=== PATIENT | female | born 1980 | race Caucasian/White ===

== ENCOUNTER 2022-06-09 20:01 | Emergency (ER) | payer MEDICAID, SELFPAY ==
[2022-06-09 20:04] VITALS: BP 121/82; PULSE 103; RESP 18; TEMP 36.4; O2SAT 100; BMI 22.6
--- NOTE | 2022-06-09 20:09 | ECG_ITS ---
Test Reason : ABD PAIN Blood Pressure : / mmHG Vent. Rate : 101 BPM Atrial Rate : 101 BPM P-R Int : 128 ms QRS Dur : 088 ms QT Int : 338 ms P-R-T Axes : 060 079 072 degrees QTc Int : 438 ms Sinus tachycardia Otherwise normal ECG When compared with ECG of 02-APR-2016 16:33, Heart rate has increased Referred By: Generic ED Physician Electronically Signed By:EMY PLEITEZ
[2022-06-09 20:28] LABS: MANUAL DIFF FLAG NO
[2022-06-09 20:36] LABS: Basophils Percent Auto 0.4 % (0-2); Eosinophils Percent Auto 0.3 % (0-4); Hemoglobin 13.2 g/dl (12.0-16.0); Imm Gran Abs Auto 0.03 X10*3/uL (0.00-0.03); Imm Gran Pct Auto 0.4 % (0.0-0.4); Lymphocytes Absolute Auto 0.6 X10*3/uL (1.2-4.9); Lymphocytes Percent Auto 7.8 % (20-40); Mean Corpuscular HGB Conc 33.8 g/dl (31.0-35.0); Mean Corpuscular Hemoglobin 32.8 pg (27.0-33.0); Mean Platelet Volume 10.1 fL (9.4-12.3); Monocytes Absolute Auto 0.4 X10*3/uL (0.1-1.2); Monocytes Percent Auto 4.4 % (2-11); Neutrophils Absolute Auto 6.9 x10*3/uL (2.0-8.3); Neutrophils Percent Auto 86.7 % (45-73); Platelet Count 249 X10*3/uL (160-400); Red Blood Count 4.02 X10*6/uL (4.20-5.50); Red Cell Distribution Width 12.7 % (11.0-16.0)
[2022-06-09 20:44] LABS: COVID-19 Test Negative (Negative)
[2022-06-09 20:46] LABS: Alanine Aminotransferase 131 U/L (0-31); Albumin Level 3.7 g/dL (3.5-5.0); Alkaline Phosphatase 123 U/L (39-117); Anion Gap 17 (12-20); Aspartate Amino Transferase 109 U/L (5-31); Bilirubin Total 0.2 mg/dL (0.0-1.0); Blood Urea Nitrogen 9 mg/dL (9-16); Calcium 8.7 mg/dL (8.4-10.2); Carbon Dioxide 22 mmol/L (22-29); Chloride 102 mmol/L (96-108); Creatinine Clr Calc Pharmacy 80.8; Estimated Glomerular Filt Rate > 60; Glucose Random 121 mg/dL (60-115); Potassium 3.8 mmol/L (3.3-5.1); Sodium 137 mmol/L (135-145); Total Protein 6.8 g/dL (6.5-8.0)
[2022-06-09 20:50] LABS: Ethanol < 10 mg/dL; Lipase 18 U/L (8-78)
[2022-06-09 21:00] LABS: Bilirubin Direct < 0.2 mg/dL (0.0-0.5)
== END 2022-06-09 22:38 | disposition left against medical advice (07) ==
PROVIDERS: Emergency Provider Emergency Medicine
DX: R53.81 Other malaise (principal); K59.00 Constipation, unspecified; Z20.822 Contact with and (suspected) exposure to COVID-19; R00.0 Tachycardia, unspecified
CPT/HCPCS: 80053; 82077; 82248; 83690; 85025; 87635; 93005; 99283